=== PATIENT | female | born 1980 | race American Indian/Alaskan Native ===

== ENCOUNTER 2016-09-06 17:39 | Inpatient (IN) | payer MEDICAID, OTHER ==
[2016-09-06] MEDS ORDERED: ALUM-MAG HYDROX-SIMETH 200-200-20MG/5ML ONE (18:37)
[2016-09-06] MEDS ORDERED: APRESOLINE ONE (18:38)
[2016-09-06] MEDS ORDERED: LIDOCAINE VISCOUS 2% ONE (18:38)
[2016-09-06 18:42] LABS: Basophils % (Auto) 0.3 % (0.0-1.8); Eosinophils % (Auto) 0.5 % (0.0-4.3); Hematocrit 38.8 % (30.3-42.9); Hemoglobin 12.4 gm/dl (10.1-14.3); Mean Corpuscular HGB Conc 32 % (30-34); Mean Corpuscular Volume 76 fl (79-97); Platelet Count 262 K/mm3 (140-440); Red Blood Count 5.13 M/mm3 (3.65-5.03); Red Cell Distribution Width 18.7 % (13.2-15.2); White Blood Count 11.8 K/mm3 (4.5-11.0)
[2016-09-06] MEDS ORDERED: ALUM-MAG HYDROX-SIMETH 200-200-20MG/5ML PO ONE (18:43)
[2016-09-06] MEDS ORDERED: APRESOLINE PO ONE (18:44)
[2016-09-06] MEDS ORDERED: LIDOCAINE VISCOUS 2% PO ONE (18:44)
[2016-09-06 18:47] LABS: Anion Gap 23 mmol/L; BUN/Creatinine Ratio 5.71; Blood Urea Nitrogen 4 mg/dL (7-17); Calcium 9.2 mg/dL (8.4-10.2); Carbon Dioxide 18 mmol/L (22-30); Chloride 99.2 mmol/L (98-107); Glucose 104 mg/dL (65-100); Potassium 3.5 mmol/L (3.6-5.0); Sodium 137 mmol/L (137-145)
[2016-09-06 18:50] LABS: Mean Corpuscular Hemoglobin 24 pg (28-32)
[2016-09-06] MEDS ORDERED: CATAPRES PO ONE (21:10)
[2016-09-06] MEDS ORDERED: MORPHINE IV ONE (21:11)
[2016-09-06] MEDS ORDERED: TORADOL IV ONE (21:11)
[2016-09-06] MEDS ORDERED: ZOFRAN IV ONE (21:11)
--- NOTE | 2016-09-06 21:12 | Emergency Department Report ---
ED Chest Pain HPI - General Chief Complaint: Chest Pain Stated Complaint: CHEST PAIN Time Seen by Provider: 09/06/16 21:01 Source: patient Mode of arrival: Ambulatory Limitations: No Limitations - History of Present Illness Initial Comments: 36-year-old female with no significant past medical history presents to the hospital complaining of chest pain since last night. Pain is in the sternal area, intermittent, described as crampy, burning, and pooling of her chest. Feels somewhat better with movement. Worsened with palpation. Rated moderate to severe in intensity. Mild associated shortness of breath. No present nausea , vomiting, or diaphoresis. Patient reports travel via car to [place] 3 weeks ago. She smokes cigarettes reports cocaine use 1-2 weeks ago. Also reports a family history of aortic aneurysms. Patient sees a physician when she reports that 8 months ago her blood pressure was normal at denies previous history of hypertension. No previous stress test. Patient was given hydralazine by mouth and GI cocktail with viscous lidocaine and Maalox prior to my evaluation in no improvement reported. - Related Data Previous Rx's Medication Instructions Recorded Last Taken Type Potassium Chloride 10 meq PO QDAY #3 capsule.er 11/12/13 Unknown Rx Promethazine [Phenergan] 25 mg PO Q6H PRN #20 tablet 11/12/13 Unknown Rx Allergies Allergy/AdvReac Type Severity Reaction Status Date / Time No Known Allergies Allergy Verified 09/06/16 17:56 Heart Score - HEART Score History: Slightly suspicious EKG: Normal Age: < 45 Risk factors: 1-2 risk factors Troponin: < normal limit HEART Score: 1 ED Review of Systems ROS: Stated complaint: CHEST PAIN Other details as noted in HPI Comment: All other systems reviewed and negative Other: Constitutional: No fevers chills Eyes: No eye pain visual changes Neck: Denies pain Respiratory: Denies cough wheezing Cardiovascular: Denies palpitations, syncope GI: Denies abdominal pain, nausea, vomiting, diarrhea : Denies dysuria Musculoskeletal: Denies back pain, joint swelling Skin: Denies rash, lesions, erythema Neurologic: Denies headache, numbness, weakness ED Past Medical Hx - Past Medical History Previous Medical History?: No - Surgical History Past Surgical History?: Yes Additional Surgical History: c sections x 3 - Social History Smoking Status: Current Every Day Smoker Substance Use Type: Alcohol, Marijuana - Medications Home Medications: Home Medications Medication Instructions Recorded Confirmed Last Taken Type Potassium Chloride 10 meq PO QDAY #3 capsule.er 11/12/13 Unknown Rx Promethazine [Phenergan] 25 mg PO Q6H PRN #20 tablet 11/12/13 Unknown Rx ED Physical Exam - General Limitations: No Limitations - Other Other exam information: General: No limitations, patient is alert in no acute distress Head exam: Atraumatic, normocephalic Eyes exam: Normal appearance, pupils equal reactive to light, extraocular movements intact ENT: Moist mucous membrane, normal oropharynx Neck exam: Normal inspection, full range of motion, no meningismus nontender Respiratory exam: Clear to auscultation bilateral, no wheezes, rales, crackles Cardiovascular: Normal rate and rhythm, normal heart sounds. Mild redness to mid sternum with reproducible tenderness to chest wall at this area, no warmth Abdomen: Soft, nondistended, and nontender, with normal bowel sounds, no rebound, or guarding Extremity: Full range of motion normal inspection no deformity, no calf tenderness or edema Back: Normal Inspection, full range of motion, no tenderness Neurologic: Alert, oriented x3, cranial nerves intact, no motor or sensory deficit Psychiatric: normal affect, normal mood Skin: Warm, dry, intactm ED Course Vital Signs 09/06/16 09/06/16 09/06/16 17:57 18:45 19:31 Temperature 98.1 F Pulse Rate 101 H 101 H 103 H Respiratory 28 H Rate Blood Pressure 181/126 186/126 Blood Pressure 185/113 [Left] O2 Sat by Pulse 100 Oximetry 09/06/16 09/06/16 22:16 22:17 Temperature Pulse Rate 96 H Respiratory 20 20 Rate Blood Pressure 213/122 Blood Pressure [Left] O2 Sat by Pulse Oximetry - Reevaluation(s) Reevaluation #1: 09/06/16 21:14 Morphine, Zofran, Toradol, po KCL given ED Medical Decision Making - Lab Data Result diagrams: 09/06/16 18:03 09/06/16 18:03 Lab Results 09/06/16 09/06/16 09/06/16 Range/Units 18:03 18:03 21:09 WBC 11.8 H (4.5-11.0) K/mm3 RBC 5.13 H (3.65-5.03) M/mm3 Hgb 12.4 (10.1-14.3) gm/dl Hct 38.8 (30.3-42.9) % MCV 76 L (79-97) fl MCH 24 L (28-32) pg MCHC 32 (30-34) % RDW 18.7 H (13.2-15.2) % Plt Count 262 (140-440) K/mm3 Lymph % (Auto) 15.2 (13.4-35.0) % Buchanan % (Auto) 7.1 (0.0-7.3) % Eos % (Auto) 0.5 (0.0-4.3) % Baso % (Auto) 0.3 (0.0-1.8) % Lymph # 1.8 (1.2-5.4) K/mm3 Buchanan # 0.8 (0.0-0.8) K/mm3 Eos # 0.1 (0.0-0.4) K/mm3 Baso # 0.0 (0.0-0.1) K/mm3 Seg Neutrophils % 76.9 H (40.0-70.0) % Seg Neutrophils # 9.1 H (1.8-7.7) K/mm3 D-Dimer (0-234) ng/mlDDU Sodium 137 (137-145) mmol/L Potassium 3.5 L (3.6-5.0) mmol/L Chloride 99.2 (98-107) mmol/L Carbon Dioxide 18 L (22-30) mmol/L Anion Gap 23 mmol/L BUN 4 L (7-17) mg/dL Creatinine 0.7 (0.7-1.2) mg/dL Estimated GFR > 60 ml/min BUN/Creatinine Ratio 5.71 % Glucose 104 H (65-100) mg/dL Calcium 9.2 (8.4-10.2) mg/dL Total Creatine Kinase (30-135) units/L CK-MB (CK-2) (0.0-4.0) ng/mL CK-MB (CK-2) Rel Index (0-4) Troponin T < 0.010 < 0.010 (0.00-0.029) ng/mL HCG, Qual (Negative) Urine Opiates Screen Urine Methadone Screen Ur Barbiturates Screen Ur Phencyclidine Scrn Ur Amphetamines Screen U Benzodiazepines Scrn Urine Cocaine Screen U Marijuana (THC) Screen Drugs of Abuse Note 09/06/16 09/06/16 09/06/16 Range/Units 21:09 21:09 21:09 WBC (4.5-11.0) K/mm3 RBC (3.65-5.03) M/mm3 Hgb (10.1-14.3) gm/dl Hct (30.3-42.9) % MCV (79-97) fl MCH (28-32) pg MCHC (30-34) % RDW (13.2-15.2) % Plt Count (140-440) K/mm3 Lymph % (Auto) (13.4-35.0) % Buchanan % (Auto) (0.0-7.3) % Eos % (Auto) (0.0-4.3) % Baso % (Auto) (0.0-1.8) % Lymph # (1.2-5.4) K/mm3 Buchanan # (0.0-0.8) K/mm3 Eos # (0.0-0.4) K/mm3 Baso # (0.0-0.1) K/mm3 Seg Neutrophils % (40.0-70.0) % Seg Neutrophils # (1.8-7.7) K/mm3 D-Dimer 166.00 (0-234) ng/mlDDU Sodium (137-145) mmol/L Potassium (3.6-5.0) mmol/L Chloride (98-107) mmol/L Carbon Dioxide (22-30) mmol/L Anion Gap mmol/L BUN (7-17) mg/dL Creatinine (0.7-1.2) mg/dL Estimated GFR ml/min BUN/Creatinine Ratio % Glucose (65-100) mg/dL Calcium (8.4-10.2) mg/dL Total Creatine Kinase 318 H (30-135) units/L CK-MB (CK-2) 2.5 (0.0-4.0) ng/mL CK-MB (CK-2) Rel Index 0.7 (0-4) Troponin T (0.00-0.029) ng/mL HCG, Qual Negative (Negative) Urine Opiates Screen Urine Methadone Screen Ur Barbiturates Screen Ur Phencyclidine Scrn Ur Amphetamines Screen U Benzodiazepines Scrn Urine Cocaine Screen U Marijuana (THC) Screen Drugs of Abuse Note 09/06/16 Range/Units Unknown WBC (4.5-11.0) K/mm3 RBC (3.65-5.03) M/mm3 Hgb (10.1-14.3) gm/dl Hct (30.3-42.9) % MCV (79-97) fl MCH (28-32) pg MCHC (30-34) % RDW (13.2-15.2) % Plt Count (140-440) K/mm3 Lymph % (Auto) (13.4-35.0) % Buchanan % (Auto) (0.0-7.3) % Eos % (Auto) (0.0-4.3) % Baso % (Auto) (0.0-1.8) % Lymph # (1.2-5.4) K/mm3 Buchanan # (0.0-0.8) K/mm3 Eos # (0.0-0.4) K/mm3 Baso # (0.0-0.1) K/mm3 Seg Neutrophils % (40.0-70.0) % Seg Neutrophils # (1.8-7.7) K/mm3 D-Dimer (0-234) ng/mlDDU Sodium (137-145) mmol/L Potassium (3.6-5.0) mmol/L Chloride (98-107) mmol/L Carbon Dioxide (22-30) mmol/L Anion Gap mmol/L BUN (7-17) mg/dL Creatinine (0.7-1.2) mg/dL Estimated GFR ml/min BUN/Creatinine Ratio % Glucose (65-100) mg/dL Calcium (8.4-10.2) mg/dL Total Creatine Kinase (30-135) units/L CK-MB (CK-2) (0.0-4.0) ng/mL CK-MB (CK-2) Rel Index (0-4) Troponin T (0.00-0.029) ng/mL HCG, Qual (Negative) Urine Opiates Screen Presumptive negative Urine Methadone Screen Presumptive negative Ur Barbiturates Screen Presumptive positive Ur Phencyclidine Scrn Presumptive negative Ur Amphetamines Screen Presumptive negative U Benzodiazepines Scrn Presumptive negative Urine Cocaine Screen Presumptive positive U Marijuana (THC) Screen Presumptive positive Drugs of Abuse Note Disclamer - EKG Data -: EKG Interpreted by Me (sinus tach [address] elevation) - EKG Data When compared to previous EKG there are: previous EKG unavailable - Radiology Data Radiology results: report reviewed (cxr pa/lat: kathy) - Medical Decision Making Patient's blood pressures trending downward after receiving additional clonidine 0.2 mg. Overall either patient's chest pain is reproducible and musculoskeletal related however, patient is significant risk factors including elevated hypertension, tobacco use, and cocaine use and therefore will be admitted for stress testing and for blood pressure management - Differential Diagnosis costochondritis, new onset hypertension, PE, dissection, GERD Critical Care Time: No Critical care attestation.: If time is entered above; I have spent that time in minutes in the direct care of this critically ill patient, excluding procedure time. ED Disposition Clinical Impression: Chest pain, Uncontrolled hypertension, Cocaine abuse, Marijuana abuse, Smoker Disposition: OP ADMIT IP TO THIS HOSP Is pt being admited?: Yes Does the pt Need Aspirin: Yes Condition: Stable Time of Disposition: 23:30 (Dr Wolf/hosp)
[2016-09-06] MEDS ORDERED: K-DUR PO ONE (21:13)
[2016-09-06 21:39] LABS: Creatine Kinase MB 2.5 ng/mL (0.0-4.0)
--- NOTE | 2016-09-06 22:18 | XRay Report ---
FINAL REPORT EXAM: XR CHEST ROUTINE 2V HISTORY: cp COMPARISON: None available. FINDINGS:: Frontal and lateral views of the chest obtained. Cardiac silhouette is within normal limits. No focal consolidation or effusion. No pneumothorax. Visualized bony thorax is grossly intact. IMPRESSION:: No acute findings.
[2016-09-06 22:35] LABS: Urine Drugs of Abuse Note Disclamer
--- NOTE | 2016-09-06 23:31 | History and Physical Report ---
History of Present Illness Date of examination: 09/06/16 History of present illness: 36 -year-old man with no medical problems comes emergency room with complaints of chest pain that started yesterday. Pain is in the left chest which she describes as a squeezing pain, constant, intensity 7/10, no radiation and she cannot identify exacerbating factors. She took several [id number] medication, etc. Tylenol extra strength, Pepcid without any relief. She admits to shortness of breath, diaphoresis and palpitation, or symptoms worsen/comes emergency room today for further evaluation. The patient was extremely elevated upon arrival, 213/122 Patient denies cough, abdominal pain, hematochezia, dysuria, frequency, focal weakness, dysarthria, fever chills, polydipsia polyuria, hot or cold intolerance , easy bruisability, or rash or bleeding from mucosal membrane, rhinorrhea, epistaxis, earache, tinnitus, blurry vision, eye discharge, anxiety, depression. Other review of systems negative PAST SURGICAL HISTORY: 3 SOCIAL HISTORY: Smoke 1/3 cigar/day, admits to alcohol and cocaine use. Lst cocaine use 3 weeks ago FAMILY HISTORY:Hypertension Medications and Allergies Allergies Allergy/AdvReac Type Severity Reaction Status Date / Time No Known Allergies Allergy Verified 09/06/16 17:56 Home Medications Medication Instructions Recorded Confirmed Last Taken Type Potassium Chloride 10 meq PO QDAY #3 capsule.er 11/12/13 Unknown Rx Promethazine [Phenergan TAB] 25 mg PO Q6H PRN #20 tablet 11/12/13 Unknown Rx Ketorolac [Toradol] 10 mg PO Q6H PRN #10 tablet 09/07/16 Unknown Rx Exam - Physical Exam Narrative exam: Gen. appearance: Patient lying in bed, no apparent distress HEENT: Normocephalic, atraumatic, pupils equally round and reactive to light, extraocular movement intact, and no sclericterus,. No JVD or thyromegaly or nodule,neck supple, no carotid bruit ,mucous membranes moist, no exudate or erythema Heart: S1, S2, regular rate and rhythm Lungs: Clear to auscultation bilaterally, breathing comfortable Abdomen: Positive bowel sounds, nontender, nondistended, no organomegaly Extremity: No edema, cyanosis, clubbing Skin: No rash, nodules, warm, dry Neuro: Oriented 3, cranial nerves II-12 intact, speech is fluent, motor and sensory intact - Constitutional Vitals: Temp Pulse Resp BP Pulse Ox 98.1 F 96 H 20 213/122 100 09/06/16 17:57 09/06/16 22:16 09/06/16 22:17 09/06/16 22:16 09/06/16 17:57 Results - Labs CBC & Chem 7: 09/07/16 00:38 09/07/16 00:24 Labs: Abnormal lab results 09/06/16 09/06/16 09/06/16 Range/Units 18:03 18:03 21:09 WBC 11.8 H (4.5-11.0) K/mm3 RBC 5.13 H (3.65-5.03) M/mm3 MCV 76 L (79-97) fl MCH 24 L (28-32) pg RDW 18.7 H (13.2-15.2) % Seg Neutrophils % 76.9 H (40.0-70.0) % Seg Neutrophils # 9.1 H (1.8-7.7) K/mm3 Potassium 3.5 L (3.6-5.0) mmol/L Carbon Dioxide 18 L (22-30) mmol/L BUN 4 L (7-17) mg/dL Glucose 104 H (65-100) mg/dL Total Creatine Kinase 318 H (30-135) units/L - Imaging and Cardiology EKG: image reviewed Chest x-ray: image reviewed Assessment and Plan Hypertensive urgency Chest pain mostly secondary to #1 Substance abuse Admit to medicine Start IV hydralazine as needed for blood pressure control Check cardiac enzymes, liver profile, stress test Start aspirin, DVT prophylaxis pt left against medicasl advise Risks and benefits explained to her
[2016-09-06] MEDS ORDERED: ASPIRIN PO ONE (23:32)
[2016-09-07] MEDS ORDERED: SODIUM CHLORIDE FLUSH SYRINGE 10 ML IV PRN (00:24)
[2016-09-07] MEDS ORDERED: MORPHINE IV PRN (00:24)
[2016-09-07] MEDS ORDERED: DULCOLAX PR PRN (00:24)
[2016-09-07] MEDS ORDERED: ZOFRAN IV PRN (00:24)
[2016-09-07] MEDS ORDERED: TYLENOL PO PRN (00:24)
[2016-09-07] MEDS ORDERED: MILK OF MAGNESIA PO PRN (00:24)
[2016-09-07] MEDS ORDERED: APRESOLINE IV PRN (00:40)
[2016-09-07 00:51] LABS: Basophils % (Auto) 0.4 % (0.0-1.8); Eosinophils % (Auto) 0.7 % (0.0-4.3); Hematocrit 35.6 % (30.3-42.9); Hemoglobin 11.4 gm/dl (10.1-14.3); Mean Corpuscular HGB Conc 32 % (30-34); Mean Corpuscular Volume 77 fl (79-97); Platelet Count 247 K/mm3 (140-440); Red Blood Count 4.64 M/mm3 (3.65-5.03); Red Cell Distribution Width 18.6 % (13.2-15.2); White Blood Count 11.4 K/mm3 (4.5-11.0)
[2016-09-07 00:54] LABS: Mean Corpuscular Hemoglobin 25 pg (28-32)
[2016-09-07 01:10] LABS: Creatine Kinase MB 2.2 ng/mL (0.0-4.0)
[2016-09-07 01:11] LABS: Anion Gap 20 mmol/L; BUN/Creatinine Ratio 8.57; Blood Urea Nitrogen 6 mg/dL (7-17); Calcium 8.7 mg/dL (8.4-10.2); Carbon Dioxide 19 mmol/L (22-30); Chloride 98.5 mmol/L (98-107); Creatine Kinase 267 units/L (30-135); Glucose 104 mg/dL (65-100); Potassium 3.8 mmol/L (3.6-5.0); Sodium 134 mmol/L (137-145)
--- NOTE | 2016-09-07 02:14 | Admit Criteria Form ---
Admission Criteria Documentation: CHEST PAIN Clinical Indications for Admission to Inpatient Care (Place 'X' for any and all applicable criteria): Admission is indicated for chest pain and ANY ONE of the following(1)(2)(3)(4)(5 ): [ ]I. Angina with acute coronary syndrome (Also use Myocardial Infarction or Angina guideline) [ ]II. Hemodynamic instability [ ]III. Angina needing acute intervention as indicated by ALL of the following( 11)(12): [ ]a) Unstable angina is present as indicated by angina that is ANY ONE of the following: [ ]i) New onset [ ]ii) Nocturnal [ ]iii) Prolonged at rest [ ]iv) Progressive [ ]b) Angina warrants acute intervention as indicated by ANY ONE of the following: [ ]i) Recurrent angina (e.g, not responding as previously to treatment) [ ]ii) Angina at rest or with low-level activities despite initial medical therapy [ ]iii) New or presumably new ST-segment depression on ECG [ ]iv) Signs or symptoms of heart failure (eg, dyspnea, pulmonary edema) [ ]v) New or worsening mitral regurgitation [ ]vi) Hemodynamic instability [ ]vii) Dangerous arrhythmia (eg, sustained ventricular tachycardia) [ ]viii) History of percutaneous coronary intervention within 6 months [ ]ix) History of coronary artery bypass graft surgery [ ]x) SOL risk score of 2 or greater[A] [ ]xi) History of Diabetes(14) [ ]xii) High-risk cardiac ischemia findings on noninvasive testing (e.g, echocardiogram, treadmill testing, nuclear scan) [ ]xiii) Chronic renal insufficiency (ie, estimated GFR less than 60 mL/min/1.732m) [ ]xiv) Left ventricular ejection fraction less than 40% [ ]IV. Evidence of LA (eg, cardiac biomarkers positive, ST-segment elevation on ECG) also use Myocardial Infarction Criteria Form. [ ]V. Pulmonary edema [ ]. Respiratory distress [ ]VII. Chest pain indicative of serious diagnosis other than coronary artery disease (eg, aortic dissection) [ ]VIII. Contraindications and/or Inappropriate clinical situations for Observational Care in patients with Chest Pain, when ANY ONE of the following is required: [ ]a) Patient with risk factor for pulmonary embolism, acute coronary syndrome and myocardial infarction (18) [ ]b) Patient with Pulmonary embolism require an average LOS of 4.3 days, therefore emergency department observation management is inappropriate 18,23 [ ]c) Painful condition/s in the elderly, have the highest rate of recidivism after emergency department observation management (10.8%) 20,21,22 [ ]d) Elevated cardiac biomarker requires intensive and exhaustive care (19) [ X]IX. General contraindications and/or Inappropriate clinical situations for Observational Care in patients with Chest Pain, when ANY ONE of the following is required: [ ]a) Prediction of prolongation of LOS based on ANY ONE of the following may be considered as a contraindication for observational care 2, 3, 4, 5, 6, 7, 8, 9, 10, 11 [ ]i) Age > 65 yrs. [ ]ii) Patient arriving by ambulance [ ]iii) Patient with high acuity [ ]iv) Patient requiring vital sign monitoring [ ]v) Patient on IV medication [X ]b) Systolic blood pressures 180mmHg 3,12 [ ]c) Patient with altered mental status including delirium and other alteration of consciousness, (3) [ ]d) Patient whose discharge disposition will be to a [facility] home or rehabilitation home should not be managed in Emergency Department Observation Unit. CMS rule requires 3 days hospital stay before such placement. 3,13 [ ]e) Patient with failure to thrive due to broad array of etiologies 3,16,17 [ ]f) Inability to ambulate 3,14 Extended stay beyond goal length of stay may be needed for (1)(28): [ ]a) Specific condition diagnosed after evaluation (eg, pulmonary embolism, aortic dissection) [ ]b) Unstable angina [ ]c) Continued suspicion of acute coronary syndrome with inability to complete needed cardiac evaluation (eg, patient clinically unable to undergo stress testing) [ ]d) Myocardial infarction (Contents from ANGINA and CHEST PAIN clinical indications for admission to inpatient care have been integrated in this form) The original [facility] content created by [employer] has been revised. The portions of the content which have been revised are identified through the use of italic text or in bold, and [facility] has neither reviewed nor approved the modified material. All other unmodified content is copyright [facility]. Please see references footnoted in the original [facility] edition 2016 Admission Criteria Met: Yes
[2016-09-07 08:50] LABS: Creatine Kinase MB 1.7 ng/mL (0.0-4.0)
[2016-09-07 08:53] LABS: Creatine Kinase 255 units/L (30-135)
[2016-09-07] MEDS ORDERED: LOVENOX SUB-Q SCH (10:00)
--- NOTE | 2016-09-07 12:35 | Discharge Summary ---
Providers - Providers Date of Admission: 09/06/16 23:30 Date of discharge: 09/07/16 Attending physician: MICHELLE BONILLA 09/07/16 Consult to Cardiac Rehabilitation [CONS] Routine Reason For Exam: Phase I Primary care physician: [employer] Hospitalization Reason for admission: cp, elevated BP Condition: Stable Hospital course: 36 -year-old man with no medical problems comes emergency room with complaints of chest pain that started the day prior to admission. Pain is in the left chest which she describes as a squeezing pain, constant, intensity 7/10, no radiation and she cannot identify exacerbating factors. She took several over- the-counter medication, etc. Tylenol extra strength, Pepcid without any relief. She admits to shortness of breath, diaphoresis and palpitation, or symptoms worsen/comes emergency room today for further evaluation. However, patient does report that the pain is reproducible with palpation. The patient's blood pressure was extremely elevated upon arrival, 213/122. The patient remains normotensive at present. Patient underwent stress thallium evaluation which was found to be negative. Patient is felt to have received maximal hospital benefit and will be discharged home. Dedicated discharge time 31 minutes. Disposition: DC-01 TO HOME OR SELFCARE Time spent for discharge: 31 - Discharge Diagnoses (1) Chest pain Status: Acute Qualifiers: Chest pain type: C Ischemic chest pain type: I (2) Uncontrolled hypertension Status: Acute Core Measure Documentation - Palliative Care Palliative Care/ Comfort Measures: Not Applicable - Core Measures Any of the following diagnoses?: none Exam - Constitutional Vitals: Temp Pulse Resp BP Pulse Ox 98 F 94 H 17 125/74 97 09/07/16 12:00 09/07/16 12:00 09/07/16 12:00 09/07/16 12:00 09/07/16 12:00 General appearance: Present: no acute distress, well-nourished - EENT Eyes: Present: PERRL ENT: hearing intact, clear oral mucosa - Neck Neck: Present: supple, normal ROM - Respiratory Respiratory effort: normal Respiratory: bilateral: CTA - Cardiovascular Heart Sounds: Present: S1 & S2. Absent: rub, click - Extremities Extremities: pulses symmetrical, No edema Peripheral Pulses: within normal limits - Abdominal General gastrointestinal: Present: soft, non-tender, non-distended, normal bowel sounds Female genitourinary: Present: normal - Integumentary Integumentary: Present: clear, warm, dry - Musculoskeletal Musculoskeletal: gait normal, strength equal bilaterally - Psychiatric Psychiatric: appropriate mood/affect, intact judgment & insight - Neurologic Neurologic: CNII-XII intact, moves all extremities Plan Activity: no restrictions Weight Bearing Status: Full Weight Bearing Diet: regular Follow up with: PRIMARY CARE,MD [Primary Care Provider] - 7 Days Prescriptions: Ketorolac [Toradol] 10 mg PO Q6H PRN #10 tablet PRN Reason: Pain
[2016-09-07 14:00] VITALS: BP 122/65
== END 2016-09-07 14:00 | disposition home or self-care (01) | DRG 305 ==
LOC: ED 17:39 → 4A 23:30
PROVIDERS: ADMIT Internal Medicine; ATTEND Hospitalist
PROC: 4A02XM4 Measurement of Cardiac Total Activity, External Approach (ICD-10-PCS; principal; 2016-09-07)
DX: I16.0 Hypertensive urgency (principal); R07.9 Chest pain, unspecified; F17.210 Nicotine dependence, cigarettes, uncomplicated; F14.90 Cocaine use, unspecified, uncomplicated; F19.10 Other psychoactive substance abuse, uncomplicated; Z82.49 Family history of ischemic heart disease and other diseases of the circulatory system; Z72.89 Other problems related to lifestyle
CPT/HCPCS: 36415; 71020; 80048; 80061; 80307; 82550; 82553; 84484; 84703; 85025; 85379; 93005; 93010; 93017; J1650; J1885; J2270; J2405

== ENCOUNTER 2018-04-09 21:47 | Emergency (ER) | payer MEDICAID, OTHER ==
[2018-04-09 22:46] LABS: Basophils % (Auto) 0.5 % (0.0-1.8); Eosinophils # (Auto) 0.2 K/mm3 (0.0-0.4); Eosinophils % (Auto) 2.3 % (0.0-4.3); Hematocrit 32.1 % (30.3-42.9); Hemoglobin 10.4 gm/dl (10.1-14.3); Lymphocytes # (Auto) 2.8 K/mm3 (1.2-5.4); Lymphocytes % (Auto) 37.8 % (13.4-35.0); Mean Corpuscular HGB Conc 32 % (30-34); Mean Corpuscular Volume 76 fl (79-97); Monocytes # (Auto) 0.5 K/mm3 (0.0-0.8); Monocytes % (Auto) 6.4 % (0.0-7.3); Platelet Count 204 K/mm3 (140-440); Red Blood Count 4.24 M/mm3 (3.65-5.03)
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
[2018-04-09 23:33] LABS: INR 0.87 (0.87-1.13)
[2018-04-09 23:34] LABS: Partial Thromboplastin Time 24.5 Sec. (24.2-36.6)
[2018-04-09] MEDS ORDERED: NORMODYNE IV ONE (23:34)
[2018-04-09 23:38] LABS: BUN/Creatinine Ratio 10; Blood Urea Nitrogen 7 mg/dL (7-17); Calcium 8.4 mg/dL (8.4-10.2); Hemolysis Index 2
--- NOTE | 2018-04-09 23:47 | XRay Report ---
FINAL REPORT PROCEDURE: XR CHEST 1V AP TECHNIQUE: Chest radiograph anteroposterior view. CPT 35642 HISTORY: chest pain COMPARISON: No prior studies are available for comparison. FINDINGS: Heart: Normal. Mediastinum/Vessels: Normal. Lungs/Pleural space: Lungs are expanded. There are no infiltrates, effusions or pneumothoraces.. Bony thorax: No acute osseous abnormality. Life support devices: None. IMPRESSION: No acute cardiopulmonary abnormality.
[2018-04-10] MEDS ORDERED: MORPHINE ONE (00:07)
[2018-04-10] MEDS ORDERED: MORPHINE IV ONE (00:15)
[2018-04-10] MEDS ORDERED: NORMODYNE IV ONE (00:39)
[2018-04-10 01:18] VITALS: BP 147/84
[2018-04-10] MEDS ORDERED: K-DUR PO ONE (01:30)
== END 2018-04-10 01:56 | disposition home or self-care (01) ==
LOC: ED 21:47
DX: R07.89 Other chest pain (principal); E87.6 Hypokalemia; I10 Essential (primary) hypertension; Z87.891 Personal history of nicotine dependence; Z79.899 Other long term (current) drug therapy
CPT/HCPCS: 36415; 71045; 80048; 84484; 84703; 85025; 85379; 85610; 85730; 93005; 93010; 96374; 96375; 99283; J2270